=== PATIENT | female | born 1955 | race Caucasian/White ===

== ENCOUNTER 2024-09-21 17:09 | Emergency (ER) | payer MEDICARE ==
[2024-09-21] MEDS: Diphtheria,Pertussis(Acell),Tetanus Vaccine 0.5 ML Syringe IM ONE (18:51)
[2024-09-21] MEDS: Amoxicillin/Clavulanate K 875-125 MG Tab PO ONE (18:51)
[2024-09-21] MEDS: Lidocaine 1% with EPINEPHrine 1:100,000 20 ML MDV INJECT ONE ×2 (18:52→20:17)
[2024-09-21] MEDS: Bacitracin Oint 28.35 GM Tube TOP ONE (20:17)
== END 2024-09-21 20:48 | disposition home or self-care (01) ==
LOC: JP.ED 17:09
DX: S81.851A Open bite, right lower leg, initial encounter (principal); S81.852A Open bite, left lower leg, initial encounter; Z88.0 Allergy status to penicillin; Z23 Encounter for immunization; Z79.899 Other long term (current) drug therapy; W54.0XXA Bitten by dog, initial encounter; Y93.89 Activity, other specified
CPT/HCPCS: 12002; 12004; 12032; 90471; 90715; 99283; A9270; J2004